=== PATIENT | female | born 1990 | race Hispanic/Latino ===

== ENCOUNTER 2022-06-23 21:04 | Emergency (ER) | payer MEDICAID ==
[~2022-06-23] VITALS: Ht 160 cm; Wt 90.7 kg
[2022-06-23 23:30] LABS: APPEARANCE,URINE CLEAR (CLEAR); BILIRUBIN,URINE NEGATIVE (NEGATIVE); COLOR,URINE LIGHT-YELLOW (YELLOW); GLUCOSE, URINE (UA) NEGATIVE (NEGATIVE); KETONES,URINE NEGATIVE (NEGATIVE); LEUKOCYTE ESTERASE ,URINE 500 Leu/uL (NEGATIVE); NITRATE,URINE NEGATIVE (NEGATIVE); OCCULT BLOOD,URINE NEGATIVE (NEGATIVE); PROTEIN,URINE NEGATIVE (NEGATIVE); UROBILINOGEN,URINE 0.2 mg/dL (0.2-1.0)
[2022-06-23] MEDS ORDERED: KETOROLAC 10 MG TABLET PO SCH (23:30)
[2022-06-23] MEDS ORDERED: CYCLOBENZAPRINE HCL 10 MG TABLET PO ONE (23:30)
[2022-06-23] MEDS ORDERED: PHARMACY COMMUNICATION MISC SCH (23:30)
[2022-06-23 23:36] VITALS: BP 117/77
[2022-06-23 23:36] LABS: HCG,QUALITATIVE URINE NEGATIVE (NEGATIVE)
[2022-06-23 23:42] LABS: BACTERIA,URINE RARE /HPF (None Seen); MUCUS,URINE RARE LPF (None Seen); SQUAMOUS EPITHELIAL CELL,UR MOD /HPF (0-2); WBC,URINE 26-50 /HPF (0-1)
[2022-06-23] MEDS ORDERED: CEPH500B PO (23:53)
[2022-06-24] MEDS ORDERED: CEFTRIAXONE 1G VIAL IVP ONE
== END 2022-06-24 00:21 | disposition home or self-care (01) ==
LOC: EDH 21:04
DX: N39.0 Urinary tract infection, site not specified (principal); Z90.49 Acquired absence of other specified parts of digestive tract; Z88.8 Allergy status to other drugs, medicaments and biological substances; Z88.6 Allergy status to analgesic agent
CPT/HCPCS: 99283; 87088; 81001; 81025; 96374; J0696